=== PATIENT | male | born 1955 | race Caucasian/White ===

== ENCOUNTER 2019-09-16 07:16 | Outpatient (CLI) | payer MEDICARE, SELFPAY ==
--- NOTE | ~2019-09-16 | US_ITS ---
EXAMINATION: US aorta [facility] DATE: 09/16/2019 07:56 INDICATION: Abdominal aortic aneurysm screening. TECHNIQUE: Grayscale, color Doppler, and pulsed Doppler images of the aorta and common iliac arteries were obtained. COMPARISON: None. FINDINGS: The proximal aorta is obscured by shadowing bowel gas. The mid aorta measures 2.8 cm. The distal aort a measures 2.1 cm. The right common iliac artery measures 1.3 cm. The left common iliac artery measur es 1.5 cm. IMPRESSION: 1. Normal caliber abdominal aorta. Reviewed, dictated and finalized at location A.
== END 2019-09-16 07:17 | disposition home or self-care (01) ==
PROVIDERS: PCP Family Medicine; Visit Provider Family Medicine
DX: Z13.6 Encounter for screening for cardiovascular disorders (principal)
CPT/HCPCS: 76706

== ENCOUNTER 2020-09-07 10:31 | Inpatient (IN) | payer MEDICARE, SELFPAY ==
[2020-09-07] VITALS (19 sets, daily range): BP systolic 149–232; BP diastolic 61–113; PULSE 24–61; RESP 12–27; TEMP 35.9–37.2; O2SAT 92–99; BMI 32.1
--- NOTE | ~2020-09-07 | XR_ITS ---
EXAMINATION: XR chest 1V portable EXAM DATE: 09/07/2020 17:02 INDICATION: Pacemaker insertion. TECHNIQUE: Portable AP frontal chest x-ray was obtained. Comparison is made to prior examination from 09/07/2020. FINDINGS: Interval insertion of a left-sided dual-lead pacemaker. No evidence of postprocedure pneumo thorax. Small amount of left basilar scarring or atelectasis. Mild cardiomegaly. No pleural effusion. IMPRESSION: 1. No acute cardiopulmonary findings. Reviewed, dictated and finalized at location A.
--- NOTE | ~2020-09-07 | XR_ITS ---
XR chest 1V portable 09/07/2020 10:58 Indication: Complete heart block Procedure: AP portable chest Comparison: No prior studies for comparison. Findings: Borderline heart size. Left basilar atelectasis/scarring. No focal pneumonia, edema, pleura l effusion or pneumothorax. No acute osseous abnormality. Impression: 1: Left basilar atelectasis/scarring. Reviewed, dictated and finalized at location A. Impression: 1: Left basilar atelectasis/scarring.
--- NOTE | 2020-09-07 10:37 | ED.WEAKNESS ---
HPI - Weakness General Chief complaint: Arrhythmia/Palpitations Stated complaint: sob, dizzy, sent from pmd for low HR Time Seen by Provider: 09/07/20 10:37 Source: patient and family Mode of arrival: wheelchair Limitations: no limitations History of Present Illness HPI Narrative: Patient is a 65-year-old male with a history of type 2 diabetes, hypertension, hyperlipidemia who presents for evaluation of bradycardia and general malaise. Patient was sent here from his primary care physician's office this morning where he was noted to be significantly bradycardic with concern for complete heart block. Patient is awake and alert, reporting that he only has felt unwell for the past 2 months. He had a primary care physician appointment this morning, but states he is not having any chest pain, but has had some shortness of breath especially with exertion over the past 2 months. He denies any leg swelling or leg pain. No fever or chills. No history of infection or Covid. No history of thyroid problems. Patient does smoke. Related Data Home Medications Medication Instructions Recorded Confirmed aspirin 81 mg tablet,delayed 81 mg PO DAILY 08/25/19 release glimepiride mg 09/07/20 lisinopril 09/07/20 metformin mg 09/07/20 rosuvastatin mg 09/07/20 sitagliptin [Januvia] mg 09/07/20 Allergies Allergy/AdvReac Type Severity Reaction Status Date / Time No Known Allergies Allergy Verified 09/07/20 09:37 Review of Systems Review of Systems: Narrative: CONSTITUTIONAL: Denies fever, chills, or sweats. EYES: Denies visual changes ENT: Denies rhinorrhea, congestion, sore throat, or otalgia. CARDIOVASCULAR: Denies chest pain, palpitations, or edema. RESPIRATORY: Denies cough, reports shortness of breath GASTROINTESTINAL: Denies abdominal pain, nausea, vomiting, or diarrhea. GENITOURINARY: Denies dysuria or hematuria. SKIN: Denies rash or itching. MUSCULOSKELETAL: Denies back pain, joint pain, or myalgia. NEUROLOGIC: Denies headache, numbness, or weakness. Reports general malaise. [facility] Past Medical History Medical History HLD (hyperlipidemia) HTN (hypertension), benign Long-term insulin use RAYMOND (obstructive sleep apnea) Smoking Type 2 diabetes mellitus with hyperglycemia Surgical History Surgical History History of blepharoplasty Family History Family History Mother Lung cancer Sibling Cancer of unknown origin Social History Social History Smoking packs per day: 1 Smoking cigarettes per day: 20.0 Years smoked: 50 Smoking pack-years: 50.00 Smoking status: Current every day smoker Tobacco type: cigarettes Second hand tobacco smoke exposure: Yes Alcohol intake: current Drinks per week: 3 Substance use: never Substance use type: does not use Gender identity (if verbalized by the patient): Male Exam Narrative: Exam Narrative: GENERAL: Awake, alert, conversant HEAD: Normocephalic, atraumatic. EYES: PERRLA and EOMI. ENT: Nares clear, no rhinorrhea or epistaxis. Mucous membranes moist. NECK: Supple. CHEST: No respiratory distress, breathing even and non labored HEART: Bradycardic rate, regular rhythm, concerning for complete heart block ABDOMEN:Non distended, non tender EXTREMITIES: Normal range of motion. No edema. SKIN: Warm, dry, no rash. NEURO:No focal deficits. Alert and oriented x3 Course Vital Signs Vital signs: Vital Signs Temperature 36.6 C 09/07/20 10:35 Pulse Rate 30 L 09/07/20 10:35 Respiratory Rate 16 09/07/20 10:35 Blood Pressure 204/76 H 09/07/20 10:35 Pulse Oximetry 97 09/07/20 10:35 Temperature 36.6 C 09/07/20 10:35 Pulse Rate 30 L 09/07/20 12:36 Respiratory Rate 16 09/07/20 10:35 Blood Pressure 232/61 H 09/07/20 12
--- NOTE | 2020-09-07 10:42 | ECG_ITS ---
Measurements Intervals [place] Rate: 27 P: [place]: 0 QRS: 115 QRSD: 170 T: -34 QT: 563 QTc: 382 Interpretive Statements SINUS RHYTHM WITH COMPLETE HEART BLOCK SLOW JUNCTIONAL ESCAPE RHYTHM RIGHT BUNDLE BRANCH BLOCK LEFT POSTERIOR FASCICULAR BLOCK BASELINE ARTIFACT- V4 ABNORMAL ECG Electronically Signed On 09-10-2020 13:33:26 CDT by David Hassan D.O.
[2020-09-07 11:05] LABS: Basophils Absolute Auto 0.1 K/mm3 (0.0-0.1); Basophils Percent Auto 0.4 % (0.2-1.2); Eosinophils Absolute Auto 0.2 K/mm3 (0-0.3); Eosinophils Percent Auto 1.2 % (0-4.4); Hematocrit 45.2 % (42.0-52.0); Hemoglobin 14.6 g/dL (14.0-18.0); Immature Granulocyte Absolute 0.05 K/mm3 (0.00-0.031); Immature Granulocyte Percent A 0.4 % (0-0.5); Lymphocytes Absolute Auto 1.58 K/mm3 (0.9-3.2); Lymphocytes Percent Auto 12.7 % (18.3-44.2); Mean Corpuscular HGB Conc 32.3 g/dl (32-36); Mean Corpuscular Volume 89.9 fl (80-100); Mean Platelet Volume 11.3 fl (7.4-10.4); Monocytes Absolute Auto 0.8 K/mm3 (0.1-0.6); Monocytes Percent Auto 6.7 % (2.6-8.5); Neutrophils Absolute Auto 9.8 K/mm3 (1.3-6.7); Neutrophils Percent Auto 78.6 % (45.5-73.1); Platelet Count Result 212 k/mm3 (150-375); Red Blood Count 5.03 M/mm3 (4.6-6.20); Red Cell Distribution Width 13.7 % (11.5-14.5); White Blood Count 12.5 K/mm3 (4.5-10.0)
[2020-09-07 11:15] LABS: Partial Thromboplastin Time 28.3 SECONDS (22.3-36.8); Prothrombin Time 13.5 Seconds (11.1-14.7)
[2020-09-07 11:18] LABS: Alanine Aminotransferase 18 U/L (4-50); Albumin Level 4.2 g/dL (3.5-5.1); Alkaline Phosphatase 75 U/L (38-126); Anion Gap 8 mmol/L (8-16); Aspartate Amino Transferase 26 U/L (17-59); Bilirubin,Total 0.4 mg/dL (0.2-1.3); Blood Urea Nitrogen 22 mg/dL (9-20); Carbon Dioxide 25 mmol/L (22-30); Chloride 108 mmol/L (98-107); Estimated CRCL calculation 57 ml/min; Estimated Glomerular Filt Rate 55; Glucose 121 mg/dL (75-110); Sodium 141 mmol/L (137-145)
[2020-09-07 11:26] LABS: NT Pro B Type Natriuretic Pept 1820 PG/ML (5-100)
[2020-09-07] MEDS: SODIUM CHLORIDE 0.9% IV 500 ML 999 ML IV CONT (11:26)
[2020-09-07 11:29] LABS: Troponin I < 0.012 ng/mL (0.000-0.034)
--- NOTE | 2020-09-07 11:37 | PC.NURSE ---
Call from pharmacy, medication to be sent to ED.
[2020-09-07 11:45] LABS: Add Urine Microscopic? YES; Appearance Urine Clear (Clear); Bacteria Urine Trace /hpf; Bilirubin Urine Negative (Negative); Blood Urine Negative (Negative); Color Urine Yellow (Yellow); Glucose Urine UA Negative (Negative); Ketones Urine Negative (Negative); Leukocyte Esterase Ur Negative LEU/UL (Negative); Mucus Urine Rare /lpf; Nitrate Urine Negative (Negative); Protein Urine 2+ mg/dL (Negative); Specific Grav Ur 1.009 (1.001-1.035); Urobilinogen Urine Negative mg/dL (<2.0); WBC Urine 0-3 /hpf
[2020-09-07] MEDS: DOBUTamine 250 MG/D5W 250 ML 250 MG/250 ML BAG 29.58 MG IV CONT (11:52)
--- NOTE | 2020-09-07 12:21 | PM.CNCAR ---
History of Present Illness History of Present Illness Consult date/time: 09/07/20 12:21 Reason For Visit: sob, dizzy, sent from pmd for low HR PMFSH Past Medical History Medical History HLD (hyperlipidemia) HTN (hypertension), benign Long-term insulin use RAYMOND (obstructive sleep apnea) Smoking Type 2 diabetes mellitus with hyperglycemia Surgical History Surgical History History of blepharoplasty Family History Family History Mother Lung cancer Sibling Cancer of unknown origin Social History Social History Smoking packs per day: 1 Smoking cigarettes per day: 20.0 Years smoked: 50 Smoking pack-years: 50.00 Smoking status: Current every day smoker Tobacco type: cigarettes Second hand tobacco smoke exposure: Yes Alcohol intake: current Drinks per week: 3 Substance use: never Substance use type: does not use Gender identity (if verbalized by the patient): Male Meds Home Medications and Allergies Home Medications Medication Instructions Recorded Confirmed Type aspirin 81 mg tablet,delayed 81 mg PO DAILY 08/25/19 History release glimepiride mg 09/07/20 History lisinopril 09/07/20 History metformin mg 09/07/20 History rosuvastatin mg 09/07/20 History sitagliptin [Januvia] mg 09/07/20 History Allergies Allergy/AdvReac Type Severity Reaction Status Date / Time No Known Allergies Allergy Verified 09/07/20 09:37 Vital Signs Vital Signs - 24 hr 09/07/20 10:35 09/07/20 11:52 Temperature 36.6 C Pulse Rate 30 L 27 L Respiratory Rate 16 Blood Pressure 204/76 H 196/66 H Pulse Oximetry 97 Results Labs and Meds Result diagrams: 09/07/20 10:57 09/07/20 10:57 Lab results: Cardiac Enzymes 09/07/20 Range/Units 10:57 AST 26 (17-59) U/L Troponin I < 0.012 (0.000-0.034) ng/mL Coagulation 09/07/20 Range/Units 10:57 PT 13.5 (11.1-14.7) Seconds APTT 28.3 (22.3-36.8) SECONDS CBC 09/07/20 Range/Units 10:57 WBC 12.5 H (4.5-10.0) K/mm3 RBC 5.03 (4.6-6.20) M/mm3 Hgb 14.6 (14.0-18.0) g/dL Hct 45.2 (42.0-52.0) % Plt Count 212 (150-375) k/mm3 Lymph # (Auto) 1.58 (0.9-3.2) K/mm3 [place] # (Auto) 0.8 H (0.1-0.6) K/mm3 Eos # (Auto) 0.2 (0-0.3) K/mm3 Baso # (Auto) 0.1 (0.0-0.1) K/mm3 Comprehensive Metabolic Panel 09/07/20 Range/Units 10:57 Sodium 141 (137-145) mmol/L Potassium 5.0 (3.4-5.0) mmol/L Chloride 108 H (98-107) mmol/L Carbon Dioxide 25 (22-30) mmol/L BUN 22 H (9-20) mg/dL Creatinine 1.30 (0.7-1.3) mg/dL Glucose 121 H (75-110) mg/dL Calcium 9.0 (8.4-10.2) mg/dL AST 26 (17-59) U/L ALT 18 (4-50) U/L Alkaline Phosphatase 75 (38-126) U/L Total Protein 8.0 (6.3-8.2) g/dL Albumin 4.2 (3.5-5.1) g/dL Intake and Output 09/06/20 09/07/20 09/07/20 23:59 07:59 15:59 Intake Total 500 Balance 500 Intake: IV 500 Sodium Chloride 0.9% IV 500 ml 500 @ 999 mls/hr IV CONT .Q31M STA Rx#:[id number] Patient Weight 09/07/20 23:59 Weight 98.6 kg
--- NOTE | 2020-09-07 12:37 | PM.CNCAR ---
Assessment and Plan Assessment and plan (1) CHB (complete heart block): Code(s): I44.2 - Atrioventricular block, complete Status: Acute Assessment and Plan: He has complete heart block with ventricular escape rhythm. He has been symptomatic for the last 2-3 months. No reversible etiology. He is not on any blocking agents. His TSH and electrolytes are within normal limits. No chest pain. First trop negative Will order 2D echo to rule out structural heart disease He will need permanent pacemaker. Will make arrangements for that this afternoon (2) HTN (hypertension), benign: Code(s): I10 - Essential (primary) hypertension Status: Acute Assessment and Plan: D/C Dobutamine Resume oral antihypertensives post procedure (3) Type 2 diabetes mellitus with hyperglycemia: Code(s): E11.65 - Type 2 diabetes mellitus with hyperglycemia Status: Acute (4) Tobacco abuse: Code(s): Z72.0 - Tobacco use Status: Acute Assessment and Plan: Smoking cessation counseling History of Present Illness History of Present Illness Consult date/time: 09/07/20 12:37 65 y/o male with no known cardiac history however h/o HTN, DM and HLD who presents with dizziness He reports ongoing symptoms of dizziness and lack of energy since new year. He presented today to his PCP office for routine check up and was found to have HR of 27. He was sent to ER and his EKG shows complete heart block with ventricular escape rhythm. He denies chest pain. He admits to dyspnea on exertion started around the same time he stared having other symptoms. He is not on any blocking agents. Labs shows normal TSH. K is 5. Cr 1.3. He smokes 1/2 pack a day Father of heart attack in his 50s. Mother of cancer. Reason For Visit: sob, dizzy, sent from pmd for low HR Review of Systems Review of Systems: All systems reviewed & are unremarkable except as noted in HPI and below Constitutional: Constitutional: Denies fatigue and Denies headache(s) Eyes: Eyes: Denies blurry vision ENT: Reports Normal hearing present and Denies headache(s) Cardiovascular: Cardiovascular: Denies chest pain, Denies diaphoresis, Denies pedal edema, Denies leg edema, Denies lightheadedness, Denies palpitations and Denies dyspnea Respiratory: Respiratory: Denies cough and Denies dyspnea Gastrointestinal: Gastrointestinal: Denies abdominal pain Musculoskeletal: Musculoskeletal: Denies back pain Neurologic: Reports Normal hearing present and Denies headache(s) Psychiatric: Psychiatric: Denies anxiety Endocrine: Endocrine: Denies fatigue and Denies palpitations PMFSH Past Medical History Medical History HLD (hyperlipidemia) HTN (hypertension), benign Long-term insulin use RAYMOND (obstructive sleep apnea) Smoking Type 2 diabetes mellitus with hyperglycemia Surgical History Surgical History History of blepharoplasty Family History Family History Mother Lung cancer Sibling Cancer of unknown origin Social History Social History Smoking packs per day: 1 Smoking cigarettes per day: 20.0 Years smoked: 50 Smoking pack-years: 50.00 Smoking status: Current every day smoker Tobacco type: cigarettes Second hand tobacco smoke exposure: Yes Alcohol intake: current Drinks per week: 3 Substance use: never Substance use type: does not use Gender identity (if verbalized by the patient): Male Meds Home Medications and Allergies Home Medications Medication Instructions Recorded Confirmed Type aspirin 81 mg tablet,delayed 81 mg PO DAILY 08/25/19 History release glimepiride mg 09/07/20 History lisinopril 09/07/20 History metformin mg 09/07/20 History rosuvastatin
--- NOTE | 2020-09-07 14:15 | ADMGEN ---
This patient, Adebayo Garvin, was admitted to Intensive Care Unit-1. Patient/family oriented to hospital policies and general routines including ID bracelet, bed and alarms, visiting hours, pain management, procedures, bathroom and other care routines, personal items, smoking policy, room service/diet, and visiting hours. Information on how to activate the Rapid Response Team has been discussed. Patient/Family are encouraged to report perceived risks to care and to ask questions if they do not understand what they are told or what they should do.
--- NOTE | 2020-09-07 14:43 | WPDMODSED ---
Moderate Sedation Note-Pt Data Patient Data Allergies Allergy/AdvReac Type Severity Reaction Status Date / Time No Known Allergies Allergy Verified 09/07/20 09:37 Home Medications Medication Instructions Recorded Confirmed Type aspirin 81 mg tablet,delayed 81 mg PO DAILY 08/25/19 History release glimepiride mg 09/07/20 History lisinopril 09/07/20 History metformin mg 09/07/20 History rosuvastatin mg 09/07/20 History sitagliptin [Januvia] mg 09/07/20 History Current Medications: Active Medications Dextrose (Dextrose 50% 25 Gm/50 Ml Syringe) 12.5 gm IV PUSH PRN PRN; Protocol PRN Reason: Hypoglycemia Glucagon (Glucagon For Inj 1 Mg Vial) 1 mg IM PRN PRN; Protocol PRN Reason: Hypoglycemia Glucose (Glucose Oral Gel 15 Gm Of Glucse In 37.5 Gm Tube) 15 gm PO PRN PRN; Protocol PRN Reason: Hypoglycemia Dobutamine HCl/Dextrose (Dobutamine 250 Mg/D5w 250 Ml) 250 mg in 250 mls @ 29.58 mls/hr IV CONT .Q8H28M CARLOS Last Infusion: 09/07/20 12:36 Dose: 0 mcg/kg/min, 0 mls/hr Documented by: Dextrose (Dextrose 5% 1,000 Ml) 1,000 mls @ 100 mls/hr IVPB PRN PRN; Protocol PRN Reason: Hypoglycemia Insulin Aspart (Insulin Aspart (*Bkc) 100 Units/Ml) 3 - 6 units SUB-Q TIDWM CARLOS; Protocol Ondansetron HCl (Ondansetron Inj 4 Mg/2 Ml Vial) 4 mg IV PUSH Q4H PRN PRN Reason: Nausea Sedation/Anesthesia: No previous sedation/anesthesia problems (including family history). [facility] Past Medical History Medical History (Updated 09/07/20 @ 14:09 by Enriqueta Weaver PA-C) Essential hypertension History of colon polyps Hyperlipidemia Insulin dependent type 2 diabetes mellitus Hemoglobin A1c was 6.4% on 09/02/2020. Obstructive sleep apnea on CPAP Tobacco dependence Surgical History Surgical History (Updated 09/07/20 @ 14:08 by Enriqueta Weaver PA-C) History of blepharoplasty History of colonoscopy with polypectomy Family History Family History Mother Lung cancer Sibling Cancer of unknown origin Social History Social History (Updated 09/07/20 @ 14:08 by Enriqueta eWaver PA-C) Social History: Surrogate decision maker: Latrice Garvin, . Code status: Full code. Smoking packs per day: 1 Smoking cigarettes per day: 20.0 Years smoked: 50 Smoking pack-years: 50.00 Smoking status: Current every day smoker Tobacco type: cigarettes Second hand tobacco smoke exposure: Yes Alcohol intake: current Drinks per week: 3 Substance use: never Substance use type: does not use Additional living arrangements comments: Resides in [place] with his . Gender identity (if verbalized by the patient): Male Mod Sed Physical Exam Physical Exam Pre Procedural Exam: Normal: Appearance, Eyes, Ears, Nose, Neck, Throat, Airway, Lungs, Heart Size, Heart Rate, Neuro Exam, Abdomen, Liver, Kidneys, Spleen, Breasts, Genitalia, Extremities and Skin and Variation: Heart Rhythm (Bradycardia noted) Hours since solid foods: 6 Hours since liquid intake: 6 Internal Medicine - PN: Obj Da Vital Signs Vital Signs: Vital Signs - 24 hr 09/07/20 10:35 09/07/20 11:30 09/07/20 11:52 Temperature 36.6 C Pulse Rate 30 L 25 L 27 L Respiratory Rate 16 13 Blood Pressure 204/76 H 196/66 H Pulse Oximetry 97 09/07/20 12:00 09/07/20 12:32 09/07/20 12:36 Temperature Pulse Rate 24 L 33 L 30 L Respiratory Rate 13 19 Blood Pressure 232/61 H 232/61 H Pulse Oximetry 98 09/07/20 13:41 09/07/20 14:14 Temperature 35.9 C L Pulse Rate 28 L 27 L Respiratory Rate 16 13 Blood Pressure 173/113 H 165/104 H Pulse Oximetry 97 95 Intake/Output Intake/Output: Intake & Output 09/04/20 09/05/20 09/06/20 09/07/20 23:59 23:59 23:59 23:59 Intake Total 517.6 Balance 517.6 Meds/Results Medications: Active Medications Generic Name Dose Route Start Last Admin Trade Name Freq PRN Reason Stop Dose Admin Dextrose 12.5 gm
--- NOTE | 2020-09-07 15:41 | ECG_ITS ---
Measurements Intervals [place] Rate: 27 P: [place]: 0 QRS: 115 QRSD: 170 T: -34 QT: 563 QTc: 382 Interpretive Statements SINUS RHYTHM WITH COMPLETE HEART BLOCK SLOW JUNCTIONAL ESCAPE RHYTHM RIGHT BUNDLE BRANCH BLOCK LEFT POSTERIOR FASCICULAR BLOCK BASELINE ARTIFACT- V4 BORDERLINE ECG Electronically Signed On 09-07-2020 16:30:51 CDT by David Hassan D.O.
--- NOTE | 2020-09-07 16:33 | P.PCNCC_ITS ---
Cardiac Cath Procedure Note Date of procedure:: 09/07/20 Performing physician:: Procedure: 2-[id number] pacemaker placement under fluoroscopy guidance. 2- Conscious sedation starting time is 2:40 p.m. ending time is 4:35 p.m. using total of 1 mg of Versed 25 micro fentanyl History: 65-year-old gentleman with history of hypertension, came to the hospital because of dizziness lightheadedness noted to have complete heart block with ventricular escape rate of 30. Was brought to the clinical laboratory manager for placement of permanent pacemaker Indication: symptomatic complete heart ribbon blockmaker: Dr. Raines Technique: In a post-absoptive state, the patient was brought to the Cardiac Catheterization Laboratory. The left hemithorax was prepped and draped in the usual sterile fashion. The skin was infiltrated with 1% Xylocaine for regional anesthesia. One venipuncture was easily made into the left subclavian vein using a micro puncture kit. The guidewire was positioned in the right atrium while a pacemaker pocket was constructed with sharp and blunt dissection and electrocautery. A 8.0 Safe sheath was used to pass the ventricular lead to the right ventricle. Another 6.0 [place] sheath was used to pass the atrial 5076-52 lead to the right atrial. Initially we started with thigh in lead using solia at T 60 V lead, but that lead was having high threshold, I would not was not seated probably at the apex, it was decided to use a screw-in lead instead. That was successful using the other sheath, and new lead was in place threshold were checked and were very appropriate this lead is solely a 60 with serial number [id number] Good pacing and sensing parameters were obtained. The leads were sutured in place with 2-0 Silk ties, following which the guide wires were removed. The leads were then attached to a dual chamber pulse generator, which was noted to be pacing and sensing appropriately. the others sheath was used for the atrial lead, the atrial lead was inserted, and subsequently over the J tipped stylet reshaped to sit in the left atrial appendage, the threshold was checked and had good sensing at this level, then the stylet was removed and the lead was sutured in place. this lead then was connected to the can, the pocket was irrigated after removal of the antibiotic soaked sponge, and the can was sutured to the deep subcutaneous tissue The wound was then irrigated with Ancef solution following which, subcutaneous tissues were closed with 2.0 Vicryl and then [place]. Aquacel Ag was also applied to the pacemaker incision site along with a pressure dressing. The patient tolerated the procedure very well, experienced no difficulties, and returned to her room in good condition. Atrial Lead: Solia serial [id number] Threshold: 1.6 Impedance: 409 Ohms P Wave sensin.6 mV Ventricular Lead: Solia [id number] Threshold: 0.4 Volts, 0.5 mA Impedance: 526 Ohms Pulse Generator: Edora 8 serial number [id number] Mode: DDD-CLS Programmed Rate: 60 Upper Tracking Rate: 130 Upper Sensor Rate: 130 AV Delay (Paced): 180 AV Delay (Sensed): 150 Patient tolerated procedure well with no complication taken from the clinical laboratory manager to his room stable condition stable vital signs will keep on immobilizer of the left arm, and will obtain chest x-ray in the morning
--- NOTE | 2020-09-07 16:46 | ECG_ITS ---
Measurements Intervals [place] Rate: 61 P: 213 [place]: 185 QRS: -67 QRSD: 202 T: 103 QT: 496 QTc: 500 Interpretive Statements ELECTRONIC ATRIAL PACEMAKER ELECTRONIC VENTRICULAR PACEMAKER BASELINE WANDER- V3 NO FURTHER INTERPRETATION IS POSSIBLE ATYPICAL ECG Electronically Signed On 09-07-2020 19:42:32 CDT by David Hassan D.O.
--- NOTE | 2020-09-07 16:50 | PM.PNCARD ---
Subjective Date/time seen: 09/07/20 16:50 he underwent permanent pacemaker placement, feels better now, echocardiogram still pending, okay to transfer to IMU Objective Data Vital Signs Vital Signs: Vital Signs - 24 hr 09/07/20 10:35 09/07/20 11:30 09/07/20 11:52 Temperature 36.6 C Pulse Rate 30 L 25 L 27 L Respiratory Rate 16 13 Blood Pressure 204/76 H 196/66 H Pulse Oximetry 97 09/07/20 12:00 09/07/20 12:32 09/07/20 12:36 Temperature Pulse Rate 24 L 33 L 30 L Respiratory Rate 13 19 Blood Pressure 232/61 H 232/61 H Pulse Oximetry 98 09/07/20 13:41 09/07/20 14:14 Temperature 35.9 C L Pulse Rate 28 L 27 L Respiratory Rate 16 13 Blood Pressure 173/113 H 165/104 H Pulse Oximetry 97 95 Intake/Output Intake/Output: Intake & Output 09/04/20 09/05/20 09/06/20 09/07/20 23:59 23:59 23:59 23:59 Intake Total 517.6 Balance 517.6 Meds/Results Medications: Active Medications Generic Name Dose Route Start Last Admin Trade Name Freq PRN Reason Stop Dose Admin Dextrose 12.5 gm 09/07/20 14:04 Dextrose 50% 25 Gm/50 Ml Syringe IV PUSH PRN PRN Hypoglycemia Protocol Glucagon 1 mg 09/07/20 14:04 Glucagon For Inj 1 Mg Vial IM PRN PRN Hypoglycemia Protocol Glucose 15 gm 09/07/20 14:04 Glucose Oral Gel 15 Gm Of Glucse In 37.5 Gm Tube PO PRN PRN Hypoglycemia Protocol Dobutamine HCl/Dextrose 250 mg in 250 mls @ 29.58 mls/hr 09/07/20 11:00 09/07/20 12:36 Dobutamine 250 Mg/D5w 250 Ml IV CONT 0 mcg/kg/min .Q8H28M CARLOS 0 mls/hr Infusion 5 MCG/KG/MIN Dextrose 1,000 mls @ 100 mls/hr 09/07/20 14:04 Dextrose 5% 1,000 Ml IVPB PRN PRN Hypoglycemia Protocol Sodium Chloride 1,000 mls @ 50 mls/hr 09/07/20 16:50 Normal Saline Iv IV CONT 09/08/20 00:51 .Q20H [facility] Insulin Aspart 3 - 6 units 09/07/20 17:00 Insulin Aspart (*Bkc) 100 Units/Ml SUB-Q TIDWM [facility] Protocol Ondansetron HCl 4 mg 09/07/20 12:35 Ondansetron Inj 4 Mg/2 Ml Vial IV PUSH Q4H PRN Nausea Radiology Results: ITS Impressions Chest X-Ray 09/07/20 11:01 Impression: 1: Left basilar atelectasis/scarring. Labs Labs: Laboratory Results - last 24 hr 09/07/20 09/07/20 09/07/20 10:57 10:57 10:57 WBC 12.5 H RBC 5.03 Hgb 14.6 Hct 45.2 MCV 89.9 MCH 29.0 MCHC 32.3 RDW 13.7 Plt Count 212 MPV 11.3 H Immature Gran % (Auto) 0.4 Neut % (Auto) 78.6 H Lymph % (Auto) 12.7 L [place] % (Auto) 6.7 Eos % (Auto) 1.2 Baso % (Auto) 0.4 Lymph # (Auto) 1.58 [place] # (Auto) 0.8 H Eos # (Auto) 0.2 Baso # (Auto) 0.1 Abs Immat Gran (auto) 0.05 H Absolute Neuts (auto) 9.8 H Absolute Nucleated RBC 0.0 Nucleated RBC % 0.0 PT 13.5 INR 1.0 APTT 28.3 Sodium 141 Potassium 5.0 Chloride 108 H Carbon Dioxide 25 Anion Gap 8 BUN 22 H Creatinine 1.30 Estim Creat Clear Calc 57 Estimated GFR 55 L Glucose 121 H Calcium 9.0 Total Bilirubin 0.4 AST 26 ALT 18 Alkaline Phosphatase 75 Troponin I < 0.012 NT-Pro-B Natriuret Pep Total Protein 8.0 Albumin 4.2 TSH 2.780 Urine Color Urine Appearance Urine pH Ur Specific [place] Urine Protein Urine Glucose (UA) Urine Ketones Ur Blood (Man) Urine Nitrate Urine Bilirubin Urine Urobilinogen Leukocyte Esterase Rfl Urine WBC Urine Bacteria Hyaline Casts Urine Mucus 09/07/20 09/07/20 10:57 11:30 WBC RBC Hgb Hct MCV MCH MCHC RDW Plt Count MPV Immature Gran % (Auto) Neut % (Auto) Lymph % (Auto) [place] % (Auto) Eos % (Auto) Baso % (Auto) Lymph # (Auto) [place] # (Auto) Eos # (Auto) Baso # (Auto) Abs Immat Gran (auto) Absolute Neuts (auto) Absolute Nucleated RBC Nucleated RBC % PT INR APTT Sodium Pot
[2020-09-07 17:51] LABS: Cholesterol 86 mg/dL (0-200); HDL Direct 24 mg/dL; Triglycerides 142 mg/dL (<150)
[2020-09-07 18:02] LABS: LDL Cholesterol Direct 40 mg/dL
[2020-09-07] MEDS: GLIMEPIRIDE 2 MG TABLET 4 MG PO (18:04)
[2020-09-07] MEDS: metFORMIN HCL 500 MG TABLET 1000 MG PO (18:05)
[2020-09-07] MEDS: SODIUM CHLORIDE 0.9% IV 1,000 ML 50 ML IV CONT (18:14)
[2020-09-07 18:18] LABS: Glucose Point of Care 101 (65-105)
[2020-09-07 18:18] LABS: Glucose Point of Care 55 (65-105)
--- NOTE | 2020-09-07 18:45 | PM.IMHP ---
H&P: HPI History of Present Illness Date/Time: 09/07/20 18:45 Chief Complaint: Bradycardia. Narrative: This is a 65-year-old male smoker with hypertension, hyperlipidemia, obstructive sleep apnea, and type 2 diabetes mellitus who presented to the emergency department earlier today from Dr. Lozoya's office for evaluation of bradycardia. Over the past several months he has had intermittent dizzy spells which have increased in frequency. In the same amount of time he has also noticed that he fatigues easily while golfing, which he enjoys doing frequently. Today he had an appointment with Dr. Lozoya where and he was found to be profoundly bradycardic and he was directed to the emergency department. His blood pressures were remarkably stable if not a bit high but he was started on dobutamine for a period of time with a pretty significant increase in his blood pressures. In any event he is now status post permanent pacemaker insertion per Dr. Raines and he reports feeling just fine at the time of my evaluation. The only complaint he currently has is of difficulties urinating. As years have gone on he has noticed that his stream is a bit slow and on occasion he will get up at night 1 time to urinate however he has never had issues with urinary retention before today. He denies fever, chills, sweats, chest pain, pleuritic pain, shortness of breath, nausea, vomiting, and sweats. Review of Systems Review of Systems: Narrative: Twelve systems were reviewed with pertinent positives and negatives as per HPI. No recent cold or flu symptoms. He denies exposure to those positive for COVID-19. No cough. He is 100% compliant with his CPAP. No nausea or vomiting. No diarrhea. He denies dysuria and hematuria. He believes his diabetes is well controlled and in fact recent hemoglobin A1c was about 6.7%. Except as documented, all other systems were reviewed and are negative. [facility] Past Medical History Medical History (Updated 09/07/20 @ 21:40 by Enriqueta Weaver PA-C) Essential hypertension History of colon polyps Hyperlipidemia Insulin dependent type 2 diabetes mellitus Hemoglobin A1c was 6.4% on 09/02/2020. Obstructive sleep apnea on CPAP Tobacco dependence Surgical History Surgical History (Updated 09/07/20 @ 21:37 by Enriqueta Wevaer PA-C) History of blepharoplasty History of cardiac pacemaker in situ (~09/07/20) History of colonoscopy with polypectomy Family History Family History Mother Lung cancer Sibling Cancer of unknown origin Social History Social History (Updated 09/07/20 @ 21:38 by Enriqueta Weaver PA-C) Social History: Surrogate decision maker: Latrice Garvin, . Code status: Full code. Smoking packs per day: 1 Smoking cigarettes per day: 20.0 Years smoked: 50 Smoking pack-years: 50.00 Smoking status: Current every day smoker Tobacco type: cigarettes Alcohol intake: current Drinks per week: 3 Substance use: never Substance use type: does not use Additional living arrangements comments: Resides in [place] with his . Enjoys [employer]. Additional occupation/education comments: Retired from [employer]. Previously in the [employer]. Gender identity (if verbalized by the patient): Male Spiritual care concerns: No Meds Home Medications and Allergies Home Medications Medication Instructions Recorded Confirmed Type aspirin 81 mg tablet,delayed 81 mg PO DAILY 08/25/19 09/07/20 History release glimepiride 4 mg PO BID 09/07/20 09/07/20 History insulin detemir U-100 [Levemir 35 unit SUBCUT HS 09/07/20 09/07/20 History FlexTouch U-100 Insuln] lisinopril 10 mg PO DAILY 09/07/20 09/07/20 History metformin 1,000 mg PO BID 09/07/20 09/07/20 History naproxen sodium [Aleve] 440 mg PO DAILY 09/07/20 09/07/20 History omega-3 fatty acids-vitamin E 3 cap PO DAILY 09/07/20 09/07/20 History [Fish Oil]
[2020-09-07] MEDS: LABETALOL HCL INJ 100 MG/20 ML VIAL 10 MG IV PUSH ×2 (18:57→21:17)
[2020-09-07] MEDS: METOPROLOL TARTRATE 25 MG TABLET PO (18:57)
[2020-09-07] MEDS: lisinopriL 10 MG TABLET PO (18:58)
[2020-09-07] MEDS: NICOTINE (*PBKC) 21 MG PATCH 1 PATCH TRANSDERM (18:58)
[2020-09-07] MEDS: INSULIN DETEMIR 100 UNITS/ML 15 UNITS SUB-Q (21:16)
[2020-09-07 21:27] LABS: Glucose Point of Care 91 (65-105)
[2020-09-08] VITALS (10 sets, daily range): BP systolic 99–190; BP diastolic 59–78; PULSE 60–91; RESP 14–19; TEMP 36.8–37; O2SAT 94–100
[2020-09-08 04:47] LABS: Hematocrit 37.5 % (42.0-52.0); Hemoglobin 12.4 g/dL (14.0-18.0); Mean Corpuscular HGB Conc 33.1 g/dl (32-36); Mean Corpuscular Hemoglobin 29.2 pg (26-34); Mean Corpuscular Volume 88.4 fl (80-100); Mean Platelet Volume 10.8 fl (7.4-10.4); Platelet Count Result 188 k/mm3 (150-375); Red Blood Count 4.24 M/mm3 (4.6-6.20); Red Cell Distribution Width 13.3 % (11.5-14.5); White Blood Count 12.7 K/mm3 (4.5-10.0)
[2020-09-08 05:17] LABS: Alanine Aminotransferase 15 U/L (4-50); Albumin Level 3.6 g/dL (3.5-5.1); Alkaline Phosphatase 62 U/L (38-126); Anion Gap 4 mmol/L (8-16); Aspartate Amino Transferase 26 U/L (17-59); Bilirubin,Total 0.6 mg/dL (0.2-1.3); Blood Urea Nitrogen 22 mg/dL (9-20); Calcium 8.6 mg/dL (8.4-10.2); Carbon Dioxide 26 mmol/L (22-30); Chloride 109 mmol/L (98-107); Estimated CRCL calculation 62 ml/min; Estimated Glomerular Filt Rate 60; Glucose 56 mg/dL (75-110); Magnesium 1.8 mg/dL (1.6-2.3); Potassium 4.6 mmol/L (3.4-5.0); Sodium 139 mmol/L (137-145)
[2020-09-08 05:21] LABS: Glucose Point of Care 87 (65-105)
[2020-09-08 06:24] LABS: Glucose Point of Care 95 (65-105)
[2020-09-08 07:34] LABS: Glucose Point of Care 98 (65-105)
[2020-09-08] MEDS: LABETALOL HCL INJ 100 MG/20 ML VIAL 10 MG IV PUSH (08:24)
[2020-09-08] MEDS: ENOXAPARIN 40 MG/0.4 ML SYRINGE SUB-Q (08:26)
[2020-09-08] MEDS: lisinopriL 10 MG TABLET PO (08:27)
[2020-09-08] MEDS: METOPROLOL SUCCINATE EXT REL 25 MG TABCR PO (08:27)
--- NOTE | 2020-09-08 08:27 | PM.PNCARD ---
Progress Note: A&P Assessment and Plan (1) CHB (complete heart block): Code(s): I44.2 - Atrioventricular block, complete Status: Acute Assessment and Plan: He has complete heart block with ventricular escape rhythm. No reversible etiology. He is not on any blocking agents. His TSH and electrolytes are within normal limits. No chest pain. First trop negative S/p pacemaker placement yesterday 09/07/20 Check X ray 2D echo pending Potential discharge later today Consider ischemic evaluation in outpatient basis (2) HTN (hypertension), benign: Code(s): I10 - Essential (primary) hypertension Status: Acute Assessment and Plan: COntinue Lisinopril. Metoprolol added to his regimen. May need further adjustment of antihypertensives if BP remains elevated. (3) Type 2 diabetes mellitus with hyperglycemia: Code(s): E11.65 - Type 2 diabetes mellitus with hyperglycemia Status: Acute (4) Tobacco abuse: Code(s): Z72.0 - Tobacco use Status: Acute Assessment and Plan: Smoking cessation counseling Subjective Date/time seen: 09/08/20 08:27 Tolerated pacemaker placement well yesterday. He denies dyspnea or chest pain. He already feels the difference. Dizziness resolved. His BP is elevated this am Review of Systems Review of Systems: All systems reviewed & are unremarkable except as noted in HPI and below Constitutional: Constitutional: Denies fatigue and Denies headache(s) Eyes: Eyes: Denies blurry vision ENT: Reports Normal hearing present and Denies headache(s) Cardiovascular: Cardiovascular: Denies chest pain, Denies diaphoresis, Denies pedal edema, Denies leg edema, Denies lightheadedness, Denies palpitations and Denies dyspnea Respiratory: Respiratory: Denies cough and Denies dyspnea Gastrointestinal: Gastrointestinal: Denies abdominal pain Musculoskeletal: Musculoskeletal: Denies back pain Neurologic: Reports Normal hearing present and Denies headache(s) Psychiatric: Psychiatric: Denies anxiety Endocrine: Endocrine: Denies fatigue and Denies palpitations Exam Const: General: no acute distress Eyes: Sclera: sclerae normal Neck: Neck: no JVD Carotids: no bruits Resp: Effort & Inspection: normal respiratory effort Auscultation: clear to auscultation bilaterally Cardio: Rate: regular rate and not tachycardic Rhythm: regular rhythm Heart sounds: no gallops, no murmurs and no rubs Skin: General skin exam: normal color Neuro: Cranial nerves: Yes Normal hearing present Speech: normal speech Extrem: General: normal to inspection and no edema Psych: Affect: normal affect Objective Data Vital Signs Vital Signs: Vital Signs - 24 hr 09/07/20 10:35 09/07/20 11:30 09/07/20 11:52 Temperature 36.6 C Pulse Rate 30 L 25 L 27 L Respiratory Rate 16 13 Blood Pressure 204/76 H 196/66 H Pulse Oximetry 97 09/07/20 12:00 09/07/20 12:32 09/07/20 12:36 Temperature Pulse Rate 24 L 33 L 30 L Respiratory Rate 13 19 Blood Pressure 232/61 H 232/61 H Pulse Oximetry 98 09/07/20 13:41 09/07/20 14:14 09/07/20 17:00 Temperature 35.9 C L Pulse Rate 28 L 27 L Respiratory Rate 16 13 Blood Pressure 173/113 H 165/104 H Pulse Oximetry 97 95 99 09/07/20 17:01 09/07/20 17:31 09/07/20 18:00 Temperature 36.1 C L Pulse Rate 60 61 60 Respiratory Rate 12 16 Blood Pressure 189/76 H 178/71 H Pulse Oximetry 99 94 09/07/20 18:31 09/07/20 18:57 09/07/20 19:00 Temperature 36.9 C Pulse Rate 60 61 61 Respiratory Rate 13 14 Blood Pressure 183/80 H 181/77 H Pulse Oximetry 95 96 09/07/20 20:00 09/07/20 21:00 09/07/20 22:00 Temperature 37.0 C 37.2 C 36.9 C Pulse Rate 61 61 61 Respiratory Rate 27 H 20 22 H Blood Pressure 177/75 H 194/77 H 153/66 H Pulse Oximetry 95 95 93 09/07/20 23:00 09/08/20 00:00 09/08/20 01:26 Temperature 36.8 C 37.0 C Pulse Rate 61 61 61 Respiratory Rate 16 14 14 Blood Pressure 1
[2020-09-08] MEDS: OMEGA 3 POLYUNSAT FATTY ACIDS 1 GM CAP 3 GM PO (08:28)
[2020-09-08] MEDS: GLIMEPIRIDE 2 MG TABLET 4 MG PO (08:28)
[2020-09-08] MEDS: metFORMIN HCL 500 MG TABLET 1000 MG PO (08:29)
[2020-09-08] MEDS: NAPROXEN SODIUM 220 MG TABLET 440 MG PO (08:29)
[2020-09-08] MEDS: NICOTINE (*PBKC) 21 MG PATCH 1 PATCH TRANSDERM (08:29)
[2020-09-08] MEDS: ASPIRIN 81 MG ENTERIC TABLET PO (08:29)
[2020-09-08] MEDS: ACETAMINOPHEN 325 MG TABLET 650 MG PO (10:35)
--- NOTE | 2020-09-08 11:18 | PM.DS ---
DS: Admitting Diagnosis Admitting Diagnosis Admitting Diagnosis: Dizziness bradycardia DS: Discharge Diagnosis Discharge Diagnosis (1) Complete heart block: Code(s): I44.2 - Atrioventricular block, complete Status: Acute Assessment and Plan: Symptomatic for approximately 2 to 3 months. Stable when sent to the emergency department from his doctor's office today. Dr. Sanchez (cardiology) consulted. Patient is now status post permanent pacemaker insertion per Dr. Raines. (2) Essential hypertension: Code(s): I10 - Essential (primary) hypertension Status: Acute Assessment and Plan: Blood pressure is not well controlled, as high as 232/61 although he was started on dobutamine. Resume antihypertensives post pacemaker insertion. Discontinue dobutamine and monitor blood pressures closely. (3) Hyperlipidemia: Code(s): E78.5 - Hyperlipidemia, unspecified Status: Acute Assessment and Plan: Continue statin and check LFTs in a.m. (4) Obstructive sleep apnea on CPAP: Code(s): G47.33 - Obstructive sleep apnea (adult) (pediatric); Z99.89 - Dependence on other enabling machines and devices Status: Acute Assessment and Plan: CPAP will be provided for the patient to use while hospitalized. (5) Insulin dependent type 2 diabetes mellitus: Code(s): E11.9 - Type 2 diabetes mellitus without complications; Z79.4 - half-way (current) use of insulin Status: Acute Assessment and Plan: Recent hemoglobin A1c was 6.4%. Continue glimepiride and sitagliptin. Hold metformin. Initiate sliding scale insulin, Accu-Cheks, and hypoglycemic protocol. (6) Tobacco abuse: Code(s): Z72.0 - Tobacco use Status: Acute Assessment and Plan: Smoking cessation is encouraged. (7) Urinary retention: Code(s): R33.9 - Retention of urine, unspecified Status: Acute Assessment and Plan: Straight catheterization x1. Consider addition of tamsulosin should he continue to have issues. DS: Summary Hospital Course Reason for hospitalization: Chief Complaint: Bradycardia. Narrative: This is a 65-year-old male smoker with hypertension, hyperlipidemia, obstructive sleep apnea, and type 2 diabetes mellitus who presented to the emergency department earlier today from Dr. Lozoya's office for evaluation of bradycardia. Over the past several months he has had intermittent dizzy spells which have increased in frequency. In the same amount of time he has also noticed that he fatigues easily while golfing, which he enjoys doing frequently. Today he had an appointment with Dr. Lozoya where and he was found to be profoundly bradycardic and he was directed to the emergency department. His blood pressures were remarkably stable if not a bit high but he was started on dobutamine for a period of time with a pretty significant increase in his blood pressures. In any event he is now status post permanent pacemaker insertion per Dr. Raines and he reports feeling just fine at the time of my evaluation. The only complaint he currently has is of difficulties urinating. As years have gone on he has noticed that his stream is a bit slow and on occasion he will get up at night 1 time to urinate however he has never had issues with urinary retention before today. He denies fever, chills, sweats, chest pain, pleuritic pain, shortness of breath, nausea, vomiting, and sweats. Hospital Course: patient with c/o of dizziness and bradycardia, he was seen by tetryl nitrator operator and diagonsed with compete heart block, pacemaker wa placed and patient cardiac echo showed preserved LV function with EF of 65% and grade I diastolic dysfunction, patient is seen by tetryl nitrator operator and clinically stable will discharge the patient today Status at Discharge Functional status at discharge: independent ambulation Overall status at discharge: patient is back to baseline Time Spent
[2020-09-08 11:48] LABS: Glucose Point of Care 146 (65-105)
--- NOTE | 2020-09-08 12:50 | ECHO_ITS ---
Patient Info Name: Adebayo Garvin Age: 65 years : 1955 Gender: Male Ht: 69 in Wt: 217 lbs BSA: 2.22 m2 HR: 61 bpm BP: 167 / 69 mmHg Technical Quality: Good Exam Date: 09/08/2020 7:50 AM Exam Location: [facility] Pulmonary Patient Status: Inpatient Admit Date: 09/07/2020 Staff Ordering Physician: Lolly Sanchez MD (aston/telma) Campground Attendant: Wojciech Andrews, JAYA, RT Attending Provider: Verito Moran MD Exam Type: CA echo doppler color flow Study Info Indications I45.89 - Other specified conduction disorders Complete two-dimensional, color flow and Doppler transthoracic echocardiogram is performed. Strain analysis performed. Summary 1. Complete two-dimensional, color flow and Doppler transthoracic echocardiogram is performed. 2. Left ventricular chamber dimension is borderline dilated. . 3. Left ventricular systolic function is normal, estimated at 60-65%. 4. The left ventricular diastolic function is grade I diastolic dysfunction. 5. Right ventricular chamber dimension is top normal. 6. There is no aortic valve stenosis. 7. There is mild mitral valve regurgitation. 8. There is no tricuspid valve regurgitation. 9. Mildly dilated inferior vena cava with <50% collapse upon inspiration. 10. There is no pericardial effusion. Left Ventricle Left ventricular chamber dimension is borderline dilated. . Left ventricular systolic function is normal, estimated at 60-65%. There is no increased left ventricular wall thickness. Left ventricular septal wall motion is normal. The left ventricular diastolic function is grade I diastolic dysfunction. Longitudinal strain of the left ventricle is normal, -18.0 %. Right Ventricle Right ventricular chamber dimension is top normal. Right ventricular systolic function is normal. Left Atria Left atrial chamber dimension is normal. Right Atria Right atrial chamber dimension is normal. Aortic Valve Number of aortic valve leaflets is not well visualized. There is no aortic valve sclerosis. There is no aortic valve stenosis. There is no aortic valve regurgitation. Pulmonic Valve The pulmonic valve is normal. There is no pulmonic valve stenosis. There is no pulmonic regurgitation. Mitral Valve The mitral valve has normal leaflets. There is no mitral valve stenosis. There is mild mitral valve regurgitation. Tricuspid Valve The tricuspid valve leaflets are normal. There is no tricuspid valve regurgitation. Unable to estimate pulmonary pressure due to poor TR jet. Pericardium/Pleural The pericardium appears normal. There is no pericardial effusion. Inferior Vena Cava Mildly dilated inferior vena cava with <50% collapse upon inspiration. Aorta The aortic root size at the sinus of Valsalva is normal. The prox ascending aorta size is normal. Left Ventricular Outflow Tract Name Value Normal LVOT 2D LVOT Diameter 2.1 cm LVOT Doppler LVOT Peak Gradient 9 mmHg LVOT Mean Gradient 4 mmHg LVOT VTI 32 cm LVOT VTI/AV VTI Ratio
== END 2020-09-08 12:20 | disposition home or self-care (01) | DRG 244 ==
LOC: ANHED 12:39 → ANHICU 13:12
PROVIDERS: Physician Assistant; Specialist; Admitting Provider Family Medicine; Emergency Provider Emergency Medicine; PCP Family Medicine; Visit Provider Family Medicine
PROC: 0JH606Z Insertion of Pacemaker, Dual Chamber into Chest Subcutaneous Tissue and Fascia, Open Approach (ICD-10-PCS; CPT 33208; principal; 2020-09-07 14:30)
DX: I44.2 Atrioventricular block, complete (principal); I10 Essential (primary) hypertension; E78.5 Hyperlipidemia, unspecified; G47.33 Obstructive sleep apnea (adult) (pediatric); E11.9 Type 2 diabetes mellitus without complications; F17.210 Nicotine dependence, cigarettes, uncomplicated; R33.9 Retention of urine, unspecified; Z79.4 Long term (current) use of insulin; Z79.82 Long term (current) use of aspirin; Z79.899 Other long term (current) drug therapy; Z99.89 Dependence on other enabling machines and devices
CPT/HCPCS: 33208; 36415; 71045; 80053; 80061; 81001; 82948; 83735; 83880; 84443; 84484; 85025; 85027; 85610; 85730; 93005; 93306; 96365; 99285; A9270; C1779; C1785; J0690; J1250; J1650; J1815; J2250; J3010; J7030; J7040

== ENCOUNTER 2021-10-12 14:30 | Outpatient (RCR) | payer MEDICARE, SELFPAY ==
[2021-08-23 09:28] VITALS: BMI 31.4
[2021-08-23 09:35] VITALS: BMI 31.4
== END 2021-11-16 13:34 | disposition home or self-care (01) ==
LOC: ANHDMC 14:30
PROVIDERS: PCP Family Medicine; Visit Provider Family Medicine
DX: E11.9 Type 2 diabetes mellitus without complications (principal); Z71.3 Dietary counseling and surveillance; Z71.89 Other specified counseling
CPT/HCPCS: 97802; G0108; G0109

== ENCOUNTER 2022-01-05 14:42 | Outpatient (RCR) | payer MEDICARE, SELFPAY | END 2022-01-13 13:25 | disposition home or self-care (01) | LOC: ANHDMC 14:42 | PROVIDERS: PCP Family Medicine; Visit Provider Family Medicine | DX: E11.9 Type 2 diabetes mellitus without complications (principal); Z71.89 Other specified counseling | CPT/HCPCS: G0109 ==

== ENCOUNTER 2022-02-22 00:23 | Day surgery (SDC) | payer MEDICARE, SELFPAY ==
[2022-02-21 13:20] VITALS: BMI 28.0
--- NOTE | 2022-02-21 13:23 | PC.NURSE ---
Report to the Outpatient Waiting Room, entrance under the green pavilion located off [facility], at time __1100 on date __02/22/22 . OR Time: 1300___. - You and your visitor will be asked to self-screen and do not enter if you have any COVID symptoms. - Only one visitor and NO children visitors are allowed at this time. - The patient visitor is requested to leave or wait in car when not with patient due to restrictions. - A mask is required within the hospital. Patients may have clear liquids (water, carbonated beverages, clear teas, apple juice) until 3 hours prior to surgery (1000 AM) with a maximum of 20 ounces. - No food from midnight until time of surgery - Infants may have breast milk until 4 hours before surgery, infant formula 6 hours prior to surgery. - Children will be allowed to drink immediately following surgery. If applicable, please bring a bottle or sippy cup to assist with drinking. Juice, water, soda, and popsicles are readily available. For infants on formula, please bring formula the day of surgery. Pacifiers are allowed. Take the following medications with a SIP of water the morning of surgery: METOPROLOL Medications to discontinue per physician ASPIRIN PER DR. PABON'S INSTRUCTIONS Date to take last dose Please no make-up, nail bulgarian, hairspray, perfume, deodorant, or body powder the day of surgery. No jewelry (including any body piercings) or valuables the day of surgery, leave them at home. Please take a shower or bath the night before, or the morning of, surgery with an antibacterial soap. Wear comfortable, loose fitting clothing. Children are encouraged to wear pajamas. - Jewelry must be removed prior to entering the operating room. Rings and piercings that are not removed may be cut off. - The hospital will not accept responsibility for valuables. - Please leave all valuables, including medications, at home the day of surgery. If you are going home after surgery, a licensed lyft driver must drive you home. - NO public transportation without another adult. - We recommend that an adult stay with you for 24 hours following discharge. - We also recommend that you do not drive, make important decision, drink alcoholic beverages, or take any drugs that were not prescribed by your health care provider for at least 24 hours after your discharge time. For Pediatric surgeries, we recommend two adults accompany the child home (only one inside the building at this time). Follow any additional instructions given to you from your surgeon. If you or anyone in your household have experienced Covid symptoms in the past week, please notify your surgeon or the nurse liaison at the phone number below for possible testing. Telephone instructions given to ___PT'S SPOUSE PER PT REQUEST and asked if any additional questions and then verbalized understanding. Patient advised to call surgeon office or pre surgery nurse liaison [phone] if any additional questions.
[2022-02-22 11:35] VITALS: BP 137/73; PULSE 69; RESP 16; TEMP 36.1; O2SAT 100
[2022-02-22 11:56] LABS: Glucose Point of Care 93 mg/dl (65-105)
--- NOTE | 2022-02-22 11:56 | WPDANESEPPF ---
Anes - Initial Pre Proc Eval Procedure: Operation Date: 02/22/22 13:00 Proposed Procedures p Excision of Epidermal Cyst Right Mid Back, Excision Epidermal Cyst Left Posterior Chest Wall - Huan Ailcea MD Date/Time: 02/22/22 11:56 Surgeon: Huan Alicea MD Pre Op Diagnosis: infected epidermal cyst right back,post chest wall Patient Data Age: 67 Gender: M Height: 1.75 m Weight: 84.8 kg Last Vital Signs Temp 36.1 C L 02/22/22 11:35 Pulse 69 02/22/22 11:35 Resp 16 02/22/22 11:35 BP 137/73 02/22/22 11:35 Pulse Ox 100 02/22/22 11:35 O2 Del Method Room Air 02/22/22 11:35 Allergies Allergy/AdvReac Type Severity Reaction Status Date / Time No Known Allergies Allergy Verified 02/22/22 11:25 Home Medications Medication Instructions Recorded Confirmed Type aspirin 81 mg tablet,delayed 81 mg PO DAILY 08/25/19 02/22/22 History release metoprolol succinate 25 mg 25 mg PO QAM #30 tabs 09/08/20 02/22/22 Rx tablet,extended release 24 hr (Toprol XL) metformin 1,000 mg tablet 1,000 mg PO BID #180 tabs 10/26/21 02/22/22 Rx rosuvastatin 20 mg tablet See Rx Instructions .Route 10/26/21 02/22/22 Rx .COMPLEX #90 tabs lancets 33 gauge (OneTouch Delica #100 ea 11/01/21 02/21/22 Rx Lancets) blood sugar diagnostic (OneTouch #100 ea 11/04/21 02/21/22 Rx Verio test strips) insulin detemir U-100 100 unit/mL 35 unit (0.35 mL) subcut HS #15 mL 12/01/21 02/22/22 Rx (3 mL) subcutaneous pen (Levemir FlexTouch U-100 Insulin) lisinopril 10 mg tablet 10 mg PO DAILY #90 tabs 12/21/21 02/22/22 Rx pen needle, diabetic 29 gauge x #100 ea 01/26/22 02/21/22 Rx 1/2 (BD Ultra-Fine Original Pen Needle) semaglutide 0.25 mg or 0.5 mg (2 0.5 mg (0.4 mL) subcut WEEKLY #4.5 01/26/22 02/22/22 Rx mg/1.5 mL) subcutaneous pen mL injector omega-3 fatty acids-vitamin E 2 cap PO DAILY 02/16/22 02/22/22 History 1,000 mg capsule Laboratory Tests 02/22/22 02/22/22 11:50 11:53 Sodium Pending Potassium Pending Chloride Pending Carbon Dioxide Pending Anion Gap Pending BUN Pending Creatinine Pending Estim Creat Clear Calc Pending Estimated GFR Pending Glucose Pending POC Capillary Glucose 93 mg/dl mg/dl (65-105) Calcium Pending Patient hx anesthesia problems: none Family hx anesthesia problems: none Results Review: All pre-operative results and documents have been reviewed as part of the pre-operative evaluation. [facility] Past Medical History Medical History Controlled diabetes mellitus Essential hypertension History of colon polyps Hyperlipidemia Insulin dependent type 2 diabetes mellitus Hemoglobin A1c was 6.4% on 09/02/2020. Obstructive sleep apnea on CPAP Tobacco dependence Surgical History Surgical History History of blepharoplasty History of cardiac pacemaker in situ (~09/07/20) History of colonoscopy with polypectomy History of incision and drainage incision and drainage of infected epidermal back cyst - 12/20/2021 Family History Family History Mother Lung cancer Sibling Cancer of unknown origin Social History Social History Social History: Surrogate decision maker: Latrice Garvin, . Code status: Full code. Smoking packs per day: 1 Smoking cigarettes per day: 20.0 Years smoked: 50 Smoking pack-years: 50.00 Smoking status: Current every day smoker Tobacco type: cigarettes Second hand tobacco smoke exposure: Yes Alcohol intake: current Drinks per week: 3 Alcohol use details: beer Substance use: never Substance use type: does not use Living arrangements: with family Additional living arra
[2022-02-22 12:06] LABS: Anion Gap 12 mmol/L (8-16); Blood Urea Nitrogen 16 mg/dL (9-20); Calcium 9.5 mg/dL (8.4-10.2); Carbon Dioxide 25 mmol/L (22-30); Chloride 104 mmol/L (98-107); Estimated CRCL calculation 62 ml/min; Estimated Glomerular Filt Rate > 60; Glucose 89 mg/dL (65-110); Potassium 4.5 mmol/L (3.4-5.0); Sodium 141 mmol/L (137-145)
[2022-02-22] MEDS: LACTATED RINGERS 1,000 ML 30 ML IV CONT (12:27)
--- NOTE | 2022-02-22 12:47 | WPDHPUPDATE1 ---
History and Physical Update Update Date/Time: 02/22/22 12:47 History and Physical has been reviewed, including an updated exam of the patient. There are NO changes in the patient's condition. Risks, benefits, and alternatives of an elliptical excision of two suspected epidermal cysts have been discussed and questions answered. Patient agrees to proceed with procedure.
[2022-02-22 14:09] VITALS: BP 137/80; PULSE 70; RESP 15; O2SAT 99
[2022-02-22 14:19] LABS: Glucose Point of Care 68 mg/dl (65-105)
--- NOTE | 2022-02-22 14:27 | W.PM.PROC2 ---
Procedure Note - Detailed Date of Procedure 02/22/22 Pre-op Diagnosis 1. recently infected epidermal cyst right back,post chest wall (subcutaneous mass) 2. 2.5 cm rounded subcutaneous mass left mid, lateral back (suspected epidermal cyst). Post-op Diagnosis Same Procedure Performed Excision of skin/subcutaneous masses x2 on the back Surgeon Huan Alicea MD Property And Supply Officer none Anesthesia Local Indications Recently infected epidermal cysts which required incision and drainage at its lower inferior edge on his right mid back. This 1 has now healed and there is no signs of infection. In order to avoid future infections I recommended complete excision. Pre-existing enlarging epidermal cyst subcutaneous mass on the left lateral chest/back. (this latter 1 it is enlarging and certainly could become infected like the 1 above). Findings Findings consistent with epidermal cysts with slight overlying skin changes and subcutaneous mass. Description of Procedure The patient was brought into the OR room on a cart and moved to the OR table. Following this Anesthesia provided some sedation and the patient was rolled on to his right side , padded and secured to the table, and under G IV S sedated such that we could use local anesthetic and excise the skin /subcutaneous lesions. After prep and drape and time-out we proceeded. Because these lesions appeared to be clean without signs of infection no preop antibiotic was given. The patient had been placed in the right lateral decubitus position. The patient was prepped and draped in the usual sterile fashion exposing his entire back except the 10 cm down close to the OR table on his right side. This nicely exposed the left lateral, posterior, lower chest skin /subcutaneous lesion that measured approximately 2.5 cm in diameter and the recently infected but now quiescent area of suspected epidermal cyst which had previously ruptured and there was an indurated area approximately 4 cm x 2 cm in size. This was just to the right of the midline on his right Mid back. Local anesthetic using 0.25% Marcaine with epinephrine was administered subcutaneously along the marked elliptical excisions sites that we outlined with indelible ink marker prior to beginning. My nurse practitioner Mihaela came in for this procedure and she excised the skin/subcutaneous lesion on the posterior left lower chest while IP perform the excision on the midback. An elliptical incision was made Using a 15 blade knife around each lesion taking a thin margin circumferentially. we dissected down to the deep subcutaneous tissues and then completely excised the lesion. Bleeding was controlled with electrocautery. during the excision we did not run into any portion of what appeared to be a cyst nor had any drainage. At each site the wound was closed in two layers. 1st we usedn un-dyed 2-0 vicryl buried subcutaneous or deep dermal as seemed appropriate and then a 3-0 undyed Monocryl running subcuticular closure was completed on the skin level. (layered closure for both of the sites) Surgical glue applied as dressing. Patient tolerated this well. Implants none Estimated Blood Loss 5 Drains No Packing No Pathology Yes (1.A long skin and subcutaneous ellipse containing the previously infected/ruptured epidermal cyst on the right midback (ellipse measured 4.5 x 2.5 cm.)2. A transverse ellipse of skin & subcutaneous tissue containing a suspected epidermal cyst measuring 5 x 1.5 cm from the left posterior lower chest ) Complications No immediate complications Condition Stable Disposition Same day [facility] Billing Surgery - Charge Forward: Surgery Billing (Rt. mid back approximately 2 cm lesion with a 4.5 x 2.5 cm excision & Lt lateral back with a 2.5 cm mass)
[2022-02-22 14:40] VITALS: BP 130/77; PULSE 66
[2022-02-22 14:44] LABS: Glucose Point of Care 69 mg/dl (65-105)
[2022-02-22] MEDS: DEXTROSE 50% 25 GM/50 ML SYRINGE IV PUSH (15:05)
[2022-02-22 15:10] VITALS: BP 134/71; PULSE 60
[2022-02-22 15:27] LABS: Glucose Point of Care 142 mg/dl (65-105)
[2022-02-22 15:35] VITALS: BP 136/71; PULSE 64
== END 2022-02-22 15:42 | disposition home or self-care (01) ==
PROVIDERS: Anesthesiology; PCP Family Medicine; Visit Provider Surgery
PROC: (CPT 11406; principal; 2022-02-22 13:00)
DX: L72.0 Epidermal cyst (principal); E11.9 Type 2 diabetes mellitus without complications; I10 Essential (primary) hypertension; E78.5 Hyperlipidemia, unspecified; G47.33 Obstructive sleep apnea (adult) (pediatric); Z95.0 Presence of cardiac pacemaker; F17.210 Nicotine dependence, cigarettes, uncomplicated; Z79.84 Long term (current) use of oral hypoglycemic drugs; Z79.82 Long term (current) use of aspirin; Z79.4 Long term (current) use of insulin; Z79.899 Other long term (current) drug therapy
CPT/HCPCS: 11406 ×2; 12034; 36415; 80048; 82948; 88304; J2250; J2405; J2704; J3010; J7120

== ENCOUNTER 2022-05-08 00:11 | Day surgery (SDC) | payer MEDICARE, SELFPAY ==
[2022-05-01 11:05] VITALS: BMI 27.6
[2022-05-08 10:59] LABS: Glucose Point of Care 141 mg/dl (65-105)
[2022-05-08 11:00] VITALS: BP 130/74; PULSE 74; RESP 18; TEMP 36.1; O2SAT 94
[2022-05-08] MEDS: LACTATED RINGERS 1,000 ML 150 ML IV CONT (11:02)
--- NOTE | 2022-05-08 11:52 | PM.HPGS ---
History of Present Illness History of Present Illness Consent: Risks, benefits, and alternatives have been discussed and questions answered. Patient agrees to proceed with procedure. Chief complaint: Hx of colon polyps Narrative: Adebayo Garvin is a 67 year old male Referred for colon cancer screening. He has a history of polyps. Review of Systems Review of Systems: All systems reviewed & are unremarkable except as noted in HPI and below PMFSH Past Medical History Medical History Controlled diabetes mellitus History of colon polyps Insulin dependent type 2 diabetes mellitus Hemoglobin A1c was 6.4% on 09/02/2020. Type 2 diabetes mellitus with hyperglycemia Urinary retention Surgical History Surgical History History of blepharoplasty History of cardiac pacemaker in situ (~09/07/20) History of colonoscopy with polypectomy History of incision and drainage incision and drainage of infected epidermal back cyst - 12/20/2021 Hx of excision of epidermal inclusion cyst Epidermal cyst right back, post chest wall (subcutaneous mass), 2.5 cm rounded subcutaneous mass left mid, lateral back (suspected epidermal cyst) 02/22/22 Family History Family History Mother Lung cancer Sibling Cancer of unknown origin Social History Social History Social History: Surrogate decision maker: Latrice Garvin, . Code status: Full code. Smoking packs per day: 1 Smoking cigarettes per day: 20.0 Years smoked: 50 Smoking pack-years: 50.00 Smoking status: Current every day smoker Tobacco type: cigarettes Second hand tobacco smoke exposure: Yes Alcohol intake: current Drinks per week: 3 Alcohol use details: beer Substance use: never Substance use type: does not use Living arrangements: with family Additional living arrangements comments: Resides in [place] with his . Enjoys [employer]. Additional occupation/education comments: Retired from [employer]. Previously in the [employer]. Gender identity (if verbalized by the patient): Male Sexual Orientation (if Verbalized by the Patient): Straight or Heterosexual Spiritual care concerns: No Meds Home Medications and Allergies Home Medications Medication Instructions Recorded Confirmed Type aspirin 81 mg tablet,delayed 81 mg PO DAILY 08/25/19 05/08/22 History release metoprolol succinate 25 mg 25 mg PO QAM #30 tabs 09/08/20 05/08/22 Rx tablet,extended release 24 hr (Toprol XL) rosuvastatin 20 mg tablet See Rx Instructions .Route 10/26/21 05/08/22 Rx .COMPLEX #90 tabs lancets 33 gauge (OneTouch Delica #100 ea 11/01/21 05/08/22 Rx Lancets) blood sugar diagnostic (OneTouch #100 ea 11/04/21 05/08/22 Rx Verio test strips) lisinopril 10 mg tablet 10 mg PO DAILY #90 tabs 12/21/21 05/08/22 Rx pen needle, diabetic 29 gauge x #100 ea 01/26/22 05/08/22 Rx 1/2 (BD Ultra-Fine Original Pen Needle) omega-3 fatty acids-vitamin E 1 cap PO DAILY 02/16/22 05/08/22 History 1,000 mg capsule insulin detemir U-100 100 unit/mL 35 unit (0.35 mL) subcut HS #15 mL 03/09/22 05/08/22 Rx (3 mL) subcutaneous pen (Levemir FlexTouch U-100 Insulin) semaglutide 0.25 mg or 0.5 mg (2 0.5 mg (0.4 mL) subcut WEEKLY #4.5 03/20/22 05/08/22 Rx mg/1.5 mL) subcutaneous pen mL injector metformin 1,000 mg tablet See Rx Instructions .Route 04/24/22 05/08/22 Rx .COMPLEX #180 tabs naproxen sodium 220 mg capsule 220 mg PO BID PRN Pain 05/01/22 05/08/22 History (Aleve) Allergies Allergy/AdvReac Type Severity Reaction Status Date / Time No Known Allergies Allergy Verified 05/08/22 10:58 Vital Signs Vital Signs - 24 hr 05/08/22 11:00 Temperature 36.1 C L Pulse Rate 74 Respiratory Rate 18 Blood Pressure 1
--- NOTE | 2022-05-08 11:56 | WPDANESEPPF ---
Anes - Initial Pre Proc Eval Procedure: Operation Date: 05/08/22 12:30 Proposed Procedures p Screening Colonoscopy - Roger Aguilar MD Date/Time: 05/08/22 11:56 Surgeon: Roger Aguilar MD Pre Op Diagnosis: Hx of colon polyps Patient Data Age: 67 Gender: M Height: 1.75 m Weight: 85 kg Last Vital Signs Temp 97 F L 05/08/22 11:00 Pulse 74 05/08/22 11:00 Resp 18 05/08/22 11:00 BP 130/74 05/08/22 11:00 Pulse Ox 94 05/08/22 11:00 O2 Del Method Room Air 05/08/22 11:00 Allergies Allergy/AdvReac Type Severity Reaction Status Date / Time No Known Allergies Allergy Verified 05/08/22 10:58 Home Medications Medication Instructions Recorded Confirmed Type aspirin 81 mg tablet,delayed 81 mg PO DAILY 08/25/19 05/08/22 History release metoprolol succinate 25 mg 25 mg PO QAM #30 tabs 09/08/20 05/08/22 Rx tablet,extended release 24 hr (Toprol XL) rosuvastatin 20 mg tablet See Rx Instructions .Route 10/26/21 05/08/22 Rx .COMPLEX #90 tabs lancets 33 gauge (OneTouch Delica #100 ea 11/01/21 05/08/22 Rx Lancets) blood sugar diagnostic (OneTouch #100 ea 11/04/21 05/08/22 Rx Verio test strips) lisinopril 10 mg tablet 10 mg PO DAILY #90 tabs 12/21/21 05/08/22 Rx pen needle, diabetic 29 gauge x #100 ea 01/26/22 05/08/22 Rx 1/2 (BD Ultra-Fine Original Pen Needle) omega-3 fatty acids-vitamin E 1 cap PO DAILY 02/16/22 05/08/22 History 1,000 mg capsule insulin detemir U-100 100 unit/mL 35 unit (0.35 mL) subcut HS #15 mL 03/09/22 05/08/22 Rx (3 mL) subcutaneous pen (Levemir FlexTouch U-100 Insulin) semaglutide 0.25 mg or 0.5 mg (2 0.5 mg (0.4 mL) subcut WEEKLY #4.5 03/20/22 05/08/22 Rx mg/1.5 mL) subcutaneous pen mL injector metformin 1,000 mg tablet See Rx Instructions .Route 04/24/22 05/08/22 Rx .COMPLEX #180 tabs naproxen sodium 220 mg capsule 220 mg PO BID PRN Pain 05/01/22 05/08/22 History (Aleve) Laboratory Tests 05/08/22 10:56 POC Capillary Glucose 141 mg/dl H mg/dl (65-105) Patient hx anesthesia problems: none Family hx anesthesia problems: none Results Review: All pre-operative results and documents have been reviewed as part of the pre-operative evaluation. [facility] Past Medical History Medical History Controlled diabetes mellitus History of colon polyps Insulin dependent type 2 diabetes mellitus Hemoglobin A1c was 6.4% on 09/02/2020. Type 2 diabetes mellitus with hyperglycemia Urinary retention Surgical History Surgical History History of blepharoplasty History of cardiac pacemaker in situ (~09/07/20) History of colonoscopy with polypectomy History of incision and drainage incision and drainage of infected epidermal back cyst - 12/20/2021 Hx of excision of epidermal inclusion cyst Epidermal cyst right back, post chest wall (subcutaneous mass), 2.5 cm rounded subcutaneous mass left mid, lateral back (suspected epidermal cyst) 02/22/22 Family History Family History Mother Lung cancer Sibling Cancer of unknown origin Social History Social History Social History: Surrogate decision maker: Latrice Garvin, . Code status: Full code. Smoking packs per day: 1 Smoking cigarettes per day: 20.0 Years smoked: 50 Smoking pack-years: 50.00 Smoking status: Current every day smoker Tobacco type: cigarettes Second hand tobacco smoke exposure: Yes Alcohol intake: current Drinks per week: 3 Alcohol use details: beer Substance use: never Substance use type: does not use Living arrangements: with family Additional living arrangements comments: Resides in [place] with his . Enjoys [email or web address]. Additional occupation/education comments: Retired from [employer].
[2022-05-08 13:25] VITALS: BP 138/84; PULSE 84; RESP 22; O2SAT 99
[2022-05-08 13:35] VITALS: BP 127/84; PULSE 85; RESP 21; O2SAT 100
[2022-05-08 13:45] VITALS: BP 136/92; PULSE 81; RESP 21; O2SAT 100
[2022-05-08 13:52] LABS: Glucose Point of Care 106 mg/dl (65-105)
== END 2022-05-08 14:07 | disposition home or self-care (01) ==
PROVIDERS: PCP Family Medicine; Visit Provider Internal Medicine Gastroenterology
PROC: 0DJD8ZZ Inspection of Lower Intestinal Tract, Via Natural or Artificial Opening Endoscopic (ICD-10-PCS; CPT 45378; principal; 2022-05-08 12:30)
DX: Z12.11 Encounter for screening for malignant neoplasm of colon (principal); K62.1 Rectal polyp; K57.30 Diverticulosis of large intestine without perforation or abscess without bleeding; E11.9 Type 2 diabetes mellitus without complications; Z79.82 Long term (current) use of aspirin; Z79.4 Long term (current) use of insulin; Z79.84 Long term (current) use of oral hypoglycemic drugs; Z79.899 Other long term (current) drug therapy; F17.210 Nicotine dependence, cigarettes, uncomplicated
CPT/HCPCS: 45385; 82948; 88305; J2704; J7120